=== PATIENT | female | born 1965 | race American Indian/Alaskan Native ===

== ENCOUNTER 2016-11-19 07:04 | Day surgery (SDC) | payer BC ==
[2016-11-19] MEDS ORDERED: Lactated Ringer's 500 ML IV ONE (07:42)
[2016-11-19] MEDS ORDERED: Propofol 10 mg/ml Inj (20 ML) ONE (07:51)
[2016-11-19 09:12] VITALS: BP 130/72; PULSE 74; RESP 18; TEMP 97; O2SAT 98
[2016-11-19] MEDS ORDERED: Gadodiamide 287 MG/ML VIAL (15ML) IV ONE (10:40)
== END 2016-11-19 15:17 | disposition home or self-care (01) ==
LOC: H.ENDO 07:04
PROVIDERS: ATTEND Internal Medicine Gastroenterology
DX: Z12.11 Encounter for screening for malignant neoplasm of colon (principal); E11.9 Type 2 diabetes mellitus without complications; E78.5 Hyperlipidemia, unspecified; I10 Essential (primary) hypertension; K64.2 Third degree hemorrhoids
CPT/HCPCS: 45380; 82948; 88305; A9579; J2001; J2704; J7120